=== PATIENT | female | born 2000 | race Caucasian/White ===

== ENCOUNTER 2021-08-27 12:28 | Emergency (ER) | payer OTHER ==
[~2021-08-27] VITALS: Ht 165.1 cm; Wt 100.0 kg
[2021-08-27 13:15] LABS: BACTERIA,URINE FEW /HPF (0-FEW); BILIRUBIN,URINE SMALL (NEG); CLARITY,URINE CLEAR; COLOR,URINE YELLOW; NITRITE,URINE NEGATIVE (NEG); PH,URINE 5.5 (<5.0-8.0); PROTEIN,URINE 30 mg/dL (NEG-TRACE); UROBILINOGEN,URINE 0.2 mg/dL (0.2 mg/dL); WBC,URINE OCC /HPF (0-4)
[2021-08-27 13:19] LABS: BASO % 1 % (0-3); EOS # 0.2 x10^3/uL (0.0-0.7); EOS % 2 % (0-3); HEMATOCRIT 40.2 % (36.0-47.0); HEMOGLOBIN 13.3 g/dL (12.0-15.5); LYMPH # 1.2 x10^3/uL (1.0-4.8); LYMPH % 14 % (24-48); MEAN CORPUSCULAR HEMOGLOBIN 29 pg (25-35); MEAN CORPUSCULAR HGB CONC 33 g/dL (31-37); MEAN CORPUSCULAR VOLUME 88 fL (79-100); MONO # 0.7 x10^3/uL (0.0-1.1); MONO % 9 % (0-9); NEUT # 6.3 x10^3/uL (1.8-7.7); NEUT % 75 % (31-73); PLATELET COUNT 273 x10^3/uL (140-400); RED BLOOD COUNT 4.55 x10^6/uL (3.50-5.40); RED CELL DISTRIBUTION WIDTH 13.2 % (11.5-14.5); WHITE BLOOD COUNT 8.5 x10^3/uL (4.0-11.0)
[2021-08-27 13:28] LABS: CREATININE 0.9 mg/dL (0.6-1.0); GFR 77.6; POTASSIUM 3.8 mmol/L (3.5-5.1)
--- NOTE | 2021-08-27 13:28 | PHYS DOC ---
Past Medical History Additional Past Medical Histor: PCOS Past Surgical History: No Surgical History Smoking Status: Never Smoker Alcohol Use: None General Adult EDM: Chief Complaint: ABDOMINAL PAIN HPI: HPI: 21-year-old female past medical history of obesity, presents the ED with complaints of "I have pain in my abdomen,I can't eat, sleep or poop." Pain is described as sharp, epigastric and radiates to her back. Was initially intermittent 3 days ago but is now constant with associated nausea, nonbilious vomiting and multiple episodes of loose watery diarrhea every 20 minutes today. Had COVID in 2021. Was seen at [facility] yesterday and prescribed sulcrafte, pepcidand Zofran ODT with no improvement in symptoms. Past surgical history of appendectomy. Just moved here from [place] and has no primary care physician. Does not take any routine medications. Has no known drug allergies. Denies any daily alcohol use, marijuana use or IV drug use. EMR was reviewed-CT abdomen pelvis with IV contrast performed yesterday showed no acute findings, normal gallbladder, liver, pancreas, spleen, adrenal glands, kidney, uterus and adnexa. No colonic wall thickening or pericolic inflammatory changes. Labs w ith no leukocytosis or electrolyte abnormalities. Patient was afebrile and slightly tachycardia on arrival of 109. Repeat was 95 bpm. Review of Systems: Review of Systems: Constitutional: Denies fever or chills. [] Eyes: Denies change in visual acuity. [] HENT: Denies nasal congestion or sore throat. [] Respiratory: Denies cough or shortness of breath. [] Cardiovascular: Denies chest pain or edema. [] GI: Denies nausea, hematochezia, hematemesis : Denies dysuria or vaginal bleeding Musculoskeletal: Denies back pain or joint pain. [] Integument: Denies rash or diaphoresis Neurologic: Denies headache, focal weakness or sensory changes. [] Endocrine: Denies polyuria or polydipsia. [] Lymphatic: Denies swollen glands. [] Psychiatric: Denies depression or anxiety. [] Heart Score: C/O Chest Pain: No Risk Factors: Risk Factors: DM, Current or recent (<one month) smoker, HTN, HLP, family history of CAD, obesity. Risk Scores: Score 0 - 3: 2.5% MACE over next 6 weeks - Discharge Home Score 4 - 6: 20.3% MACE over next 6 weeks - Admit for Clinical Observation Score 7 - 10: 72.7% MACE over next 6 weeks - Early Invasive Strategies Allergies: Allergies: Allergies Coded Allergies Type Severity Reaction Last Updated Verified No Known Drug Allergies 08/27/21 No Physical Exam: PE: Constitutional: Well developed, well nourished, no acute distress, non-toxic appearance. HENT: Normocephalic, atraumatic, Eyes: EOMI, conjunctiva normal, no discharge. Neck: Normal range of motion, supple, Cardiovascular: S1/2 present, regular rhythm Lungs & Thorax: Speaking in full sentences, bilateral equal chest rise, no tachypnea or increased work of breathing Abdomen: soft, reports epigastric tenderness-no grimace with palpation, no McBurney's point tenderness, no Harry sign, no rigidity or guarding or peritoneal findings Skin: Warm, dry, no erythema, no rash. [] Back: No midline tenderness, no CVA tenderness. [] Extremities: No tenderness, no cyanosis, no lower extremity edema Neurologic: Alert and oriented X 3, normal motor function, normal sensory function, no focal deficits noted. [] Psychologic: Affect normal, judgement normal, mood normal. [] Current Patient Data: Labs: Laboratory Tests Test 08/27/21 12:42 08/27/21 13:08 Urine Collection Type Unknown Urine Color Yellow Urine Clarity Clear Urine pH 5.5 (<5.0-8.0) Urine Specific [place] 1.025 (1.000-1.030) Urine Protein 30 mg/dL (NEG-TRACE) Urine Glucose (UA) Negative mg/dL (NEG) Urine Ketones (Stick) Trace mg/dL (NEG) Urine Blood Moderate (NEG) Urine Nitrite Negative (NEG) Urine Bilirubin Small (NEG) Urine Urobilinogen Dipstick 0.2 mg/dL (0.2 mg/dL) Urine Leukocyte Esterase Negative (NEG) Urine RBC 3-5 /HPF (0-2) Urine WBC Occ /HPF (0-4) Urine Squamous Epithelial Cells Mod /LPF Urine Bacteria Few /HPF (0-FEW) Urine Mucus Mod /LPF POC Urine HCG, Qualitative Hcg negative (Negative) White Blood Count 8.5 x10^3/uL (4.0-11.0) Red Blood Count 4.55 x10^6/uL (3.50-5.40) Hemoglobin 13.3 g/dL (12.0-15.5) Hematocrit 40.2 % (36.0-47.0) Mean Corpuscular Volume 88 fL (79-100) Mean Corpuscular Hemoglobin 29 pg (25-35) Mean Corpuscular Hemoglobin Concent 33 g/dL (31-37) Red Cell Distribution Width 13.2 % (11.5-14.5) Platelet Count 273 x10^3/uL (140-400) Neutrophils (%) (Auto) 75 % (31-73) H Lymphocytes (%) (Auto) 14 % (24-48) L Monocytes (%) (Auto) 9 % (0-9) Eosinophils (%) (Auto) 2 % (0-3) Basophils (%) (Auto) 1 % (0-3) Neutrophils # (Auto) 6.3 x10^3/uL (1.8-7.7) Lymphocytes # (Auto) 1.2 x10^3/uL (1.0-4.8) Monocytes # (Auto) 0.7 x10^3/uL (0.0-1.1) Eosinophils # (Auto) 0.2 x10^3/uL (0.0-0.7) Basophils # (Auto) 0.0 x10^3/uL (0.0-0.2) Laboratory Tests 08/27/21 13:08 Vital Signs: Vital Signs Date Time Temp Pulse Resp B/P (MAP) Pulse Ox O2 Delivery O2 Flow Rate FiO2 08/27/21 12:28 98.1 105 18 147/83 (104) 97 Room Air 98.1 EKG: EKG: Sinus rhythm 90 bpm, no axis deviation, no T wave inversion, no ST ovation or ST depression Radiology/Procedures: Radiology/Procedures: []IMAGING REPORT Signed PATIENT: KRISTY MELARA ACCOUNT: [id number] : 2000 LOCATION: ER AGE: 21 SEX: F EXAM STATUS: PRE ER ORD. PHYSICIAN: TEO JIANG DO REASON: upper abd pain PROCEDURE: PORTABLE CHEST 1V XR CHEST 1V History: Reason: upper abd pain / Spl. Instructions: / History: Comparison: None. Findings: No consolidation or pleural effusion. Normal heart size. No pneumothorax. Impression: 1. No acute cardiopulmonary process. Electronically signed by: Ruddy Dillon DO (08/27/2021 1:36 PM) [facility] DICTATED and SIGNED BY: RUDDY DILLON DO DATE: 08/27/21 1336 IMAGING REPORT Signed PATIENT: KRISTY MELARA ACCOUNT: [id number] : 2000 LOCATION: ER AGE: 21 SEX: F EXAM STATUS: REG ER ORD. PHYSICIAN: TEO JIANG DO REASON: epigastric pain PROCEDURE: ABDOMEN LTD EXAMINATION: US ABDOMEN LIMITED 08/27/2021 3:51 PM INDICATION: Epigastric pain TECHNIQUE: Wilkinson scale and color Doppler ultrasound images of the right upper quadrant were obtained. COMPARISON: CT abdomen pelvis 08/26/2021. FINDINGS: Liver: The liver is normal in size measuring 15 cm in length. Normal hepatic echogenicity. No focal liver lesion. Gallbladder: The gallbladder is normal in caliber. No cholelithiasis or sludge. The gallbladder wall is normal in thickness measuring 2 mm. Bile ducts: The common bile duct is normal measuring 2 mm. No intrahepatic biliary duct dilatation. Right kidney: The right kidney measures 10.3 x 3.8 x 4.4 cm. Normal cortical thickness and echogenicity. No hydronephrosis. Other: IVC is patent at the liver. The pancreas is obscured by bowel gas. IMPRESSION: The pancreas is obscured by bowel gas. Otherwise normal right upper quadrant ultrasound. Electronically signed by: Brandi Negrete MD (08/27/2021 4:42 PM) [id number] DICTATED and SIGNED BY: BRANDI NEGRETE MD DATE: 08/27/21 1329 Course & Med Decision Making: Course & Med Decision Making Pertinent Labs and Imaging studies reviewed. (See chart for details) Concern for epigastric abdominal pain in the setting of multiple episodes of loose watery diarrhea. Patient cannot recall any sick contacts. No prior history of similar symptoms. No associated fever. No diarrhea or vomiting present in ed. On reevaluation after analgesia, patient reports her pain is well controlled, abdominal exam is soft and benign. Patient well-appearing and is resting comfortably. Will prescribe Bentyl and refer to GI for endoscopy. Will discharge home with strict ED return precautions were given for abdominal pain, fever, bloody stools or dehydration. Encouraged urgent outpatient follow-up with PMD for routine evaluation and GI. Life-threatening processes were considered but are low suspicion at this time, given history, physical exam and ED workup. Pt was educated on all prescription medications and adverse effects. All patient's questions were answered and pt was stable at time of discharge. Life/limb-threatening differential includes but is not limited to, aortic dissection, aortic aneurysm, acute coronary syndrome, surgical abdomen (appendicitis, cholecystitis, ischemic bowel, strangulated hernia, etc), bowel obstruction or volvulus, bladder outlet obstruction, gastrointestinal bleeding, inflammatory bowel disease, peptic ulcer disease, ACS/CAD, sepsis, diverticular disease, ureterolithiasis, nephrolithiasis, ovarian or testicular torsion, ectopic , vaginal hemorrhage, or genitourinary infection. I have spoken with the patient and/or caregivers. I explained the patient's condition, diagnoses and treatment plan based on the information available to me at this time. I have answered the patient and/or caregiver's questions and addressed any concerns. The patient and/or caregivers have a good understanding of patient's diagnosis, condition and treatment plan as can be expected at this point. Vital signs have been stable. Patient's condition is stable and appropriate for discharge from the emergency department. Patient will pursue further outpatient evaluation with primary care physician or other designated or consulting physician as outlined in the discharge instructions. The patient and/or caregivers are agreeable to this plan of care and follow-up instructions have been explained in detail. The patient and/or caregivers have received these instructions in written form and have expressed an understanding of the discharge instructions. The patient and/or caregivers are aware that any significant change of condition or worsening of symptoms should prompt immediate return to this or the closest emergency department or call to 911. Eric Disclaimer: Eric Disclaimer: This electronic medical record was generated, in whole or in part, using a voice recognition dictation system. Departure Departure Impression: Primary Impression: Abdominal pain Additional Impression: Diarrhea Disposition: HOME / SELF CARE / HOMELESS Condition: STABLE Referrals: MAYA MONTERO MD Follow-up with your primary care physician in 24 to 48 hours OR FOLLOW UP WITH FAMILY MEDICINE: [address], [address] [place] [address] Patient Instructions: Abdominal Pain, Diarrhea Additional Instructions: FOLLOW UP WITH GASTROENTEROLOGY: FOR DEFINITIVE MANAGEMENT of abdominal pain with egd/colonoscopy [facility] [address] [place] [address] \\ EMERGENCY DEPARTMENT GENERAL DISCHARGE INSTRUCTIONS Thank you for coming to [facility] Emergency Department (ED) today and trusting us with you care. We trust that you had a positive experience in our Emergency Department. If you wish to speak to the department management, you may call the Director at [phone]. YOUR FOLLOW UP INSTRUCTIONS ARE FOLLOWS: 1. Do you have a private Doctor? If you do not have a private doctor, please ask for a resource list of physicians or clinics that may be able to assist you with follow up care. 2. The Emergency Physicain has interpreted your x-rays. The X-Ray specialist will also review them. If there is a change in the findings, you will be notified in 48 hours when at all possible. 3. A lab test or culture has been done, your results will be reviewed and you will be notified if you need a change in treatment. ADDITIONAL INSTRUCTIONS AND INFORMATION: 1. Your care today has been supervised by a physician who is specially trained in emergency care. Many problems require more than one evaluation for a complete diagnosis and treatment. We recommend that you schedule your follow up appointment as recommended to ensure complete treatment of you illness or injury. If you are unable to obtain follow up care and continue to have a problem, or if your condition worsens, we recommend that you return to the ED. 2. We are not able to safely determine your condition over the phone nor are we able to give sound medical advice over the phone. For these safety reasons, if you call for medical advice we will ask you to come to the ED for further evaluation. 3. If you have any questions regarding these discharge instructions please call the ED at [phone]. SAFETY INFORMATION: In the interest of safety, wellness, and injury prevention; we encourage you to wear your sealbelt, if you smoke; quite smoking, and we encourage family to use a protective helmet for bicycling and other sporting events that present an increased risk for head injury. IF YOUR SYMPTOMS WORSEN OR NEW SYMPTOMS DEVELOP, OR YOU HAVE CONCERNS ABOUT YOUR CONDITION; OR IF YOUR CONDITION WORSENS WHILE YOU ARE WAITING FOR YOUR FOLLOW UP APPOINTMENT; EITHER CONTACT YOUR PRIMARY CARE DOCTOR, THE PHYSICIAN WHOSE NAME AND NUMBER YOU WERE GIVEN, OR RETURN TO THE ED IMMEDIATELY. Scripts Dicyclomine Hcl (DICYCLOMINE HCL) 10 Mg Capsule 1 CAP PO TID for abdominal pain, #20 CAP 11 Refills Prov: TEO JIANG DO 08/27/21 TEO JIANG DO Aug 27, 2021 13:28
[2021-08-27 13:35] LABS: ALBUMIN 3.9 g/dL (3.4-5.0); TOTAL BILIRUBIN 0.6 mg/dL (0.2-1.0); TOTAL PROTEIN 7.9 g/dL (6.4-8.2)
--- NOTE | 2021-08-27 13:39 | RAD ---
XR CHEST 1V History: Reason: upper abd pain / Spl. Instructions: / History: Comparison: None. Findings: No consolidation or pleural effusion. Normal heart size. No pneumothorax. Impression: 1. No acute cardiopulmonary process. Electronically signed by: Ruddy iDllon DO (08/27/2021 1:36 PM) [facility]
[2021-08-27] MEDS ORDERED: KETOROLAC 15 MG/ML VIAL. IVP ONE (13:45)
[2021-08-27] MEDS ORDERED: ONDANSETRON PF 4 MG/2 ML VIAL. IVP ONE ×2 (13:45→17:30)
[2021-08-27] MEDS ORDERED: IV NORMAL SALINE 1000ML BAG 1,000 ML IV ONE (13:45)
[2021-08-27 14:14] LABS: BARBITURATES NEG (NEG); BENZODIAZEPINES NEG (NEG); CANNABINOIDS NEG (NEG); COCAINE NEG (NEG); METHADONE NEG (NEG); OPIATES NEG (NEG); PHENCYCLIDINE NEG (NEG)
[2021-08-27 14:15] LABS: AMPHETAMINE/METHAMPHETAMINE NEG (NEG)
[2021-08-27 14:17] LABS: CREATINE KINASE 57 U/L (26-192); LIPASE 42 U/L (73-393)
--- NOTE | 2021-08-27 16:44 | RAD ---
EXAMINATION: US ABDOMEN LIMITED 08/27/2021 3:51 PM INDICATION: Epigastric pain TECHNIQUE: Wilkinson scale and color Doppler ultrasound images of the right upper quadrant were obtained. COMPARISON: CT abdomen pelvis 08/26/2021. FINDINGS: Liver: The liver is normal in size measuring 15 cm in length. Normal hepatic echogenicity. No focal liver lesion. Gallbladder: The gallbladder is normal in caliber. No cholelithiasis or sludge. The gallbladder wa ll is normal in thickness measuring 2 mm. Bile ducts: The common bile duct is normal measuring 2 mm. No intrahepatic biliary duct dilatation. Right kidney: The right kidney measures 10.3 x 3.8 x 4.4 cm. Normal cortical thickness and echogenic ity. No hydronephrosis. Other: IVC is patent at the liver. The pancreas is obscured by bowel gas. IMPRESSION: The pancreas is obscured by bowel gas. Otherwise normal right upper quadrant ultrasound. Electronically signed by: Brandi Negrete MD (08/27/2021 4:42 PM) [id number]
[2021-08-27 17:15] VITALS: BP 126/88
[2021-08-27] MEDS ORDERED: HYDROmorphone 2 MG/ML INJ. IVP ONE (17:30)
[2021-08-27] MEDS ORDERED: DICY10CA3 PO (17:44)
--- NOTE | 2021-08-27 19:05 | EKG ---
[facility] [address] [place] [address] Test Date: 2001-06-12 Test Time: 13:13:07 Pat Name: KRISTY MELARA Department: Room: Gender: F [place] [employer]: : 2000 Requested By: TEO JIANG Order Number: [id number] Reading MD: Measurements Intervals [place] Rate: 90 P: 33 TX: 148 QRS: -7 QRSD: 86 T: 41 QT: 362 QTc: 447 Interpretive Statements SINUS RHYTHM COMPLEX(ES) WITH ABERRANT INTRAVENTRICULAR CONDUCTION LEFTWARD AXIS AXIS ABNORMAL CONSIDERING AGE LOW VOLTAGE PROLONGED QT ABNORMAL ECG RI6.02 No previous ECG available for comparison
== END 2021-08-27 18:02 | disposition home or self-care (01) ==
LOC: ER 12:28
DX: R10.13 Epigastric pain (principal); R11.2 Nausea with vomiting, unspecified; R19.7 Diarrhea, unspecified
CPT/HCPCS: 36415; 71045; 76705; 80053; 80307; 81001; 81025; 82550; 83690; 83735; 83880; 84484; 85025; 93005; 96361; 96374; 96375; 96376; 99285; J1170; J1885; J2405; J7030